=== PATIENT | female | born 1950 | race Caucasian/White ===

== ENCOUNTER 2018-08-06 13:42 | Outpatient (CLI) | payer MEDICARE, BC | END 2018-08-06 13:43 | disposition home or self-care (01) | LOC: BICMAMMO 13:42 | PROVIDERS: ATTEND Family Medicine | DX: Z12.31 Encounter for screening mammogram for malignant neoplasm of breast (principal); R92.1 Mammographic calcification found on diagnostic imaging of breast | CPT/HCPCS: 77063; 77067 ==